=== PATIENT | male | born 1990 | race Caucasian/White ===

== ENCOUNTER 2020-01-26 09:47 | Inpatient (IN) | payer MEDICAID, OTHER ==
[~2020-01-26] VITALS: Ht 165.1 cm; Wt 95.3 kg
[~2020-01-26 09:47] MED LIST: KEPP500 PO
[2020-01-26] MEDS ORDERED: LORAZEPAM 2MG/ML CPJ IM STA (09:53)
[2020-01-26 10:13] LABS: BASOPHILS % 0.3 % (0.0-2.0); EOSINOPHILS % 0.1 % (0.0-5.0); HEMATOCRIT. 46.7 % (42.0-52.0); HEMOGLOBIN. 16.4 g/dL (14.0-18.0); LYMPHOCYTES % 12.7 % (20.0-50.0); MEAN CORPUSCULAR VOLUME 82.5 fL (80.0-94.0); MEAN PLATELET VOLUME 7.4 fl (7.4-10.4); MONOCYTES % 7.6 % (2.0-8.0); NEUTROPHILS % 79.3 % (40.0-76.0); PLATELET 341 x1000/uL (130-400); RED BLOOD CELL COUNT 5.66 mill/uL (4.7-6.1)
[2020-01-26 10:21] LABS: CHLORIDE 103 mEq/L (98-107)
[2020-01-26 10:25] LABS: ETHANOL BLOOD < 10 mg/dL
[2020-01-26 10:34] LABS: CARBAMAZEPINE < 0.5 ug/mL (4-12); PHENOBARBITAL < 2.1 ug/mL (15.0-40.0); VALPROIC ACID < 3.0 ug/mL (50-100)
[2020-01-26] MEDS ORDERED: LEVETIRACETAM 1000MG PREMIX 100 ML IV ONE (13:15)
[2020-01-26] MEDS ORDERED: KETOROLAC 15MG/ML VIAL IV PRN (14:15)
[2020-01-26] MEDS ORDERED: ACETAMINOPHEN 325MG TABLET PO PRN ×2 (14:15)
[2020-01-26] MEDS ORDERED: NITROGLYCERIN 0.4MG TABLET SL SL PRN (14:15)
[2020-01-26] MEDS ORDERED: IPRATROPIUM/ALBUTEROL 0.5-3(2.5)MG/3ML NEB NEB PRN (14:15)
[2020-01-26] MEDS ORDERED: MAGNESIUM/ALUMINUM HYDROXIDE/SIMETHICONE 30ML UDC PO PRN (14:15)
[2020-01-26] MEDS ORDERED: DOCUSATE SODIUM 100MG CAPSULE PO PRN (14:15)
[2020-01-26] MEDS ORDERED: ONDANSETRON HCL 4MG/2ML INJ IV PRN (14:15)
[2020-01-26] MEDS ORDERED: CLONIDINE 0.1MG TABLET PO PRN (14:15)
[2020-01-26] MEDS ORDERED: LORAZEPAM 2MG/ML CPJ IV PRN (14:15)
[2020-01-26] MEDS ORDERED: KCL 20MEQ/100ML PREMIX 100 ML IV NR (15:00)
[2020-01-26] MEDS ORDERED: ZOLPIDEM TARTRATE 5MG TABLET PO PRN (21:00)
[2020-01-26 23:30] VITALS: BP 110/75
[2020-01-27] MEDS: FAMOTIDINE 20MG TABLET PO SCH ×3 (00:37→21:40)
[2020-01-27] MEDS: LEVETIRACETAM 500MG TABLET PO SCH ×3 (00:37→21:40)
[2020-01-27] MEDS: ASCORBIC ACID 500 MG TABLET PO SCH ×3 (00:38→21:40)
[2020-01-27 06:47] LABS: BASOPHILS % 0.5 % (0.0-2.0); EOSINOPHILS % 0.8 % (0.0-5.0); HEMATOCRIT. 46.9 % (42.0-52.0); HEMOGLOBIN. 16.4 g/dL (14.0-18.0); LYMPHOCYTES % 19.3 % (20.0-50.0); MEAN CORPUSCULAR HEMOGLOBIN 29.3 pg (28.0-32.0); MEAN CORPUSCULAR VOLUME 83.6 fL (80.0-94.0); MEAN PLATELET VOLUME 7.5 fl (7.4-10.4); MONOCYTES % 8.7 % (2.0-8.0); NEUTROPHILS % 70.7 % (40.0-76.0); PLATELET 288 x1000/uL (130-400); RED CELL DISTRIBUTION WIDTH 14.7 % (11.6-14.6)
[2020-01-27 07:10] LABS: CHLORIDE 104 mEq/L (98-107)
[2020-01-27 07:17] LABS: PHOSPHORUS 3.9 mg/dL (2.5-4.9)
[2020-01-27] MEDS: ZINC SULFATE 220 MG ( 50 ) CAPSULE PO SCH (08:41)
[2020-01-27 18:22] LABS: CLARITY URINE CLEAR (CLEAR); COLOR URINE YELLOW (YELLOW); KETONES URINE NEGATIVE (NEGATIVE); LEUKOCYTE ESTERASE URINE NEGATIVE (NEGATIVE); NITRITE URINE NEGATIVE (NEGATIVE); OCCULT BLOOD URINE NEGATIVE (NEGATIVE); PROTEIN URINE NEGATIVE (NEGATIVE); SPECIFIC GRAVITY URINE 1.014 (1.005-1.030); UROBILINOGEN URINE 0.2 E.U./dL (0.2-1.0)
[2020-01-27 18:40] LABS: *AMPHETAMINES SCREEN URINE NEGATIVE (NEGATIVE); *BARBITURATES SCREEN URINE NEGATIVE (NEGATIVE); *BENZODIAZEPINES SCREEN URINE NEGATIVE (NEGATIVE); *COCAINE SCREEN URINE NEGATIVE (NEGATIVE)
[2020-01-27 18:41] LABS: CANNABINOID URINE SCREEN NEGATIVE (NEGATIVE); METHADONE URINE SCREEN NEGATIVE (NEGATIVE); OPIATES URINE SCREEN NEGATIVE (NEGATIVE); PHENCYCLIDINE URINE SCREEN NEGATIVE (NEGATIVE)
[2020-01-28] VITALS: BP 110/82
[2020-01-28 04:00] VITALS: BP 119/85
[2020-01-28 08:00] VITALS: BP 126/81
[2020-01-28 09:01] VITALS: BP 126/81
[2020-01-28] MEDS: LEVETIRACETAM 500MG TABLET PO SCH (09:48)
[2020-01-28] MEDS: FAMOTIDINE 20MG TABLET PO SCH (09:49)
[2020-01-28] MEDS: ZINC SULFATE 220 MG ( 50 ) CAPSULE PO SCH (09:49)
[2020-01-28] MEDS: ASCORBIC ACID 500 MG TABLET PO SCH (09:49)
== END 2020-01-28 11:15 | disposition home or self-care (01) | DRG 53 ==
LOC: ER 09:47 → 8WST 13:59 → ENRESERV 19:13 → CANRESERV 19:13 → ENRESERV 21:57
PROVIDERS: ADMIT Internal Medicine; ATTEND Internal Medicine
DX: G40.909 Epilepsy, unspecified, not intractable, without status epilepticus (principal); E83.52 Hypercalcemia; E87.6 Hypokalemia; G92 Toxic encephalopathy; I16.1 Hypertensive emergency; E80.4 Gilbert syndrome; Z91.19 Patient's noncompliance with other medical treatment and regimen; Z98.2 Presence of cerebrospinal fluid drainage device; Z79.899 Other long term (current) drug therapy
CPT/HCPCS: 36415; 80053; 80061; 80156; 80165; 80184; 80185; 80305; 80320; 81003; 82962; 83036; 83735; 84100; 85025; 93005; 93970; 99285; J1953; J2060; J3480; G0480